=== PATIENT | male | born 1995 | race African-American/Black ===

== ENCOUNTER → 2019-05-24 | Outpatient (CLI) | payer BC ==
--- NOTE | 2019-05-24 09:20 | Diagnostic Imaging Report ---
INDICATION: Injury one week ago with persistent pain. Two-view left tib-fib show no fracture, dislocation, foreign body or acute abnormality. IMPRESSION: Negative. Dictated by: Dictated on workstation # [id number]
== END ==
LOC: RAD FS 08:50
PROVIDERS: ATTEND Nurse Practitioner Family
DX: S89.90XA Unspecified injury of unspecified lower leg, initial encounter (principal)
CPT/HCPCS: 73590

== ENCOUNTER 2019-06-19 18:31 | Emergency (ER) | payer BC, OTHER ==
[~2019-06-19] VITALS: Ht 187.9 cm; Wt 85.0 kg
[2019-06-19 19:01] LABS: WHITE BLOOD COUNT 5.2 10^3/uL (4.3-11.0)
--- NOTE | 2019-06-19 19:01 | ED General ---
General Chief Complaint: Exposure Stated Complaint: DEHYDRATION Source of Information: Patient, EMS History of Present Illness Date Seen by Provider: Jun 19, 2019 Time Seen by Provider: 19:00 Initial Comments 23-year-old male presenting by EMS with complaints of overall body cramping and left-sided headache. He has been at practice for football today and was very active. He has felt like he was drinking enough fluids but has not urinated since this morning. He also is having a left-sided headache. He does have a history of migraines. He states that he has not eaten since 1 PM. He denies any nausea or vomiting. He has had no diarrhea or change in his bowels. He denies any past medical problems other than the migraine headaches. Allergies and Home Medications Allergies Coded Allergies: No Known Drug Allergies (Unverified , 06/19/19) Patient Home Medication List Home Medication List Reviewed: Yes Review of Systems Review of Systems Constitutional: No chills; diaphoresis, dizziness (with trying to stand this evening); No fever EENTM: No hearing loss, No blurred vision, No double vision, No nose congestion Respiratory: No cough, No short of breath Cardiovascular: No chest pain, No palpitations Gastrointestinal: no symptoms reported Genitourinary: decreased output Musculoskeletal: muscle stiffness, muscle cramps, muscle twitching Skin: no symptoms reported Psychiatric/Neurological: Headache (left-sided) Hematologic/Lymphatic: No Symptoms Reported Immunological/Allergic: no symptoms reported Past Yidobns-Rshyex-Gdhfoz Hx Past Med/Social Hx: Reviewed Nursing Past Med/Soc Hx Patient Social History Recent Foreign Travel: No Contact w/Someone Who Travel: No Physical Exam Vital Signs Vital Signs - First Documented 06/19/19 18:32 Temp 36.4 Pulse 84 Resp 16 B/P (MAP) 170/90 (116) Pulse Ox 100 O2 Delivery Room Air Capillary Refill : Height, Weight, BMI Height: '" Weight: lbs. oz. kg; BMI Method: General Appearance: WD/WN, Mild Distress HEENT: PERRL/EOMI, Normal ENT Inspection, Pharynx Normal Neck: Full Range of Motion, Normal Inspection, Non Tender, Supple Respiratory: Chest Non Tender, Lungs Clear, Normal Breath Sounds, No Accessory Muscle Use, No Respiratory Distress Cardiovascular: Regular Rate, Rhythm, Normal Peripheral Pulses Gastrointestinal: Normal Bowel Sounds, No Pulsatile Mass, Non Tender, Soft Back: Normal Inspection, No CVA Tenderness, No Vertebral Tenderness Extremity: Normal Capillary Refill, Normal Inspection, Normal Range of Motion, Non Tender, No Calf Tenderness Neurologic/Psychiatric: Alert, Oriented x3, No Motor/Sensory Deficits, Normal Mood/Affect, manager foreign II-XII Norm as Tested Skin: Normal Color, Diaphoresis Progress/Results/Core Measures Suspected Sepsis SIRS Temperature: Pulse: Respiratory Rate: Laboratory Tests 06/19/19 18:40: White Blood Count 5.2 Blood Pressure / Mean: Laboratory Tests 06/19/19 18:40: Creatinine 2.18H, Platelet Count 197, Total Bilirubin 0.9 06/19/19 20:43: Creatinine 1.86H Results/Orders Lab Results Laboratory Tests Test 06/19/19 18:40 06/19/19 19:47 06/19/19 20:43 Range/Units White Blood Count 5.2 4.3-11.0 10^3/uL Red Blood Count 6.00 H 4.35-5.85 10^6/uL Hemoglobin 14.1 13.3-17.7 G/DL Hematocrit 44 40-54 % Mean Corpuscular Volume 73 L 80-99 FL Mean Corpuscular Hemoglobin 24 L 25-34 PG Mean Corpuscular Hemoglobin Concent 32 32-36 G/DL Red Cell Distribution Width 15.2 H 10.0-14.5 % Platelet Count 197 130-400 10^3/uL Mean Platelet Volume 11.0 H 7.4-10.4 FL Neutrophils (%) (Auto) 56 42-75 % Lymphocytes (%) (Auto) 32 12-44 % Monocytes (%) (Auto) 12 0-12 % Eosinophils (%) (Auto) 0 0-10 % Basophils (%) (Auto) 0 0-10 % Neutrophils # (Auto) 2.9 1.8-7.8 X 10^3 Lymphocytes # (Auto) 1.6 1.0-4.0 X 10^3 Monocytes # (Auto) 0.6 0.0-1.0 X 10^3 Eosinophils # (Auto) 0.0 0.0-0.3 10^3/uL Basophils # (Auto) 0.0 0.0-0.1 10^3/uL Sodium Level 138 137 135-145 MMOL/L Potassium Level 3.7 4.2 3.6-5.0 MMOL/L Chloride Level 94 L 100 98-107 MMOL/L Carbon Dioxide Level 24 25 21-32 MMOL/L Anion Gap 20 H 12 5-14 MMOL/L Blood Urea Nitrogen 20 H 19 H 7-18 MG/DL Creatinine 2.18 H 1.86 H 0.60-1.30 MG/DL Estimat Glomerular Filtration Rate 47 56 BUN/Creatinine Ratio 9 10 Glucose Level 93 80 70-105 MG/DL Calcium Level 11.0 H 8.9 8.5-10.1 MG/DL Corrected Calcium 8.5-10.1 MG/DL Magnesium Level 1.8 1.6-2.4 MG/DL Total Bilirubin 0.9 0.1-1.0 MG/DL Aspartate Amino Transf (AST/SGOT) 26 5-34 U/L Alanine Aminotransferase (ALT/SGPT) 14 0-55 U/L Alkaline Phosphatase 68 40-136 U/L Total Protein 8.4 H 6.4-8.2 GM/DL Albumin 5.4 H 3.2-4.5 GM/DL Urine Color DARK YELLOW Urine Clarity CLEAR Urine pH 6.0 5-9 Urine Specific [place] 1.020 1.016-1.022 Urine Protein TRACE H NEGATIVE Urine Glucose (UA) NEGATIVE NEGATIVE Urine Ketones TRACE H NEGATIVE Urine Nitrite NEGATIVE NEGATIVE Urine Bilirubin NEGATIVE NEGATIVE Urine Urobilinogen 0.2 NORMAL MG/DL Urine Leukocyte Esterase NEGATIVE NEGATIVE Urine RBC (Auto) NEGATIVE NEGATIVE Urine RBC RARE /HPF Urine WBC 10-25 H /HPF Urine Squamous Epithelial Cells 2-5 /HPF Urine Crystals NONE /LPF Urine Bacteria NEGATIVE /HPF Urine Casts PRESENT /LPF Urine Hyaline Casts >50 H /LPF Urine Mucus LARGE H /LPF Urine Culture Indicated NO My Orders Orders - ZAHIDA RESTREPO MD Cbc With Automated Diff (06/19/19 18:41) Magnesium (06/19/19 18:41) Ekg Tracing (06/19/19 18:41) Comprehensive Metabolic Panel (06/19/19 18:41) Monitor-Rhythm Ecg Trace Only (06/19/19 18:41) Ed Iv/Invasive Line Start (06/19/19 18:41) Ua Culture If Indicated (06/19/19 18:41) Ns Iv 1000 Ml (Sodium Chloride 0.9%) (06/19/19 18:41) Ketorolac Injection (Toradol Injection) (06/19/19 19:11) Orthostatic Vital Signs (Adult (06/19/19 19:11) Basic Metabolic Panel (06/19/19 20:45) Ns Iv 1000 Ml (Sodium Chloride 0.9%) (06/19/19 20:00) Vital Signs/I&O 06/19/19 06/19/19 06/19/19 18:32 19:38 21:30 Temp 36.4 36.5 Pulse 84 74 72 80 72 Resp 16 14 B/P (MAP) 170/90 (116) 142/69 (93) 145/85 146/76 (99) 126/71 (89) Pulse Ox 100 100 O2 Delivery Room Air Room Air 06/20/19 00:00 Intake Total 2200 ml Balance 2200 ml Capillary Refill : Progress Note #1: Progress Note Check labs and give IV fluids for hydration. Obtain electrocardiogram as well as well since he has been dehydrated and having muscle tremors and shakes. Progress Note #2: Progress Note His labs are showing that he has elevated creatinine. We will give additional fluids beyond the 2 bags from EMS. We will repeat his chemistry panel else's see what his creatinine has done. Provided he has responded to that could consider discharging home. If his creatinine is not improving then would have to consider admission for his acute kidney injury Progress Note #3: Progress Note Repeat labs show that his creatinine is decreased to 1.86. This has improved. As patient is feeling improved Will have him continue to push fluids orally at home. However he will need to have his creatinine rechecked in 2-3 days at the clinic. If it is not continuing to improve then he will need to hold off on any further sports or physical exertion until he can get further checked. If his creatinine is not improving then he will need to continue with the fluids and may even need to see nephrology or have admission for IV fluids. ECG Initial ECG Impression Date: Jun 19, 2019 Initial ECG Impression Time: 18:48 Initial ECG Rate: 85 Initial ECG Rhythm: Normal Sinus Initial ECG Comparisson: No Previous ECG Available Comment Sinus rhythm with a heart rate of 85 bpm. Left atrial enlargement. Left ventricu lar hypertrophy with early repolarization. MO interval of 175 ms. QT interval 364 ms with a QT corrected interval 433 ms. There is no prior tracing available for comparison. Departure Impression Primary Impression: Dehydration after exertion Additional Impression: Acute renal injury due to hypovolemia Disposition: HOME, SELF-CARE Condition: Stable Departure-Patient Inst. Decision time for Depature: 21:25 Referrals: [facility] (PCP) Primary Care Physician JUDY LLOYD APRN (Family) Primary Care Physician Patient Instructions: Dehydration, Adult (DC), Acute Kidney Failure (DC) Add. Discharge Instructions: No sports or strenuous activity until kidney function has returned to normal. You will need to get this rechecked in clinic or with a provider on or Tuesday. In the meantime continue to drink plenty of fluids and stay well hydrated. Your creatinine is now down to 1.86 after hydration but a normal value should be closer to 1.2 or less. All discharge instructions reviewed with patient and/or family. Voiced understanding. Work/School Note: School/Childcare Release Date Seen in the Emergency Dep artment: Jun 19, 2019 Time Dismissed from Emergency Department: 21:31 Return to School: Jun 20, 2019 Restrictions: No PE-Until Released, No Sports-Until Released Other Restrictions Listed Below: Needs lab in 2-3 days to recheck Creatinine before release for sports ZAHIDA RESTREPO MD Jun 19, 2019 19:01
[2019-06-19 19:02] LABS: BASOPHILS % (AUTO) 0 % (0-10); EOSINOPHILS % (AUTO) 0 % (0-10); HEMATOCRIT 44 % (40-54); HEMOGLOBIN 14.1 G/DL (13.3-17.7); LYMPHOCYTES # (AUTO) 1.6 X 10^3 (1.0-4.0); LYMPHOCYTES % (AUTO) 32 % (12-44); MEAN CORPUSCULAR HEMOGLOBIN 24 PG (25-34); MEAN CORPUSCULAR HGB CONC 32 G/DL (32-36); MEAN CORPUSCULAR VOLUME 73 FL (80-99); MONOCYTES # (AUTO) 0.6 X 10^3 (0.0-1.0); MONOCYTES % (AUTO) 12 % (0-12); NEUTROPHILS # (AUTO) 2.9 X 10^3 (1.8-7.8); NEUTROPHILS % (AUTO) 56 % (42-75); PLATELET COUNT 197 10^3/uL (130-400); RED CELL DISTRIBUTION WIDTH 15.2 % (10.0-14.5)
--- NOTE | 2019-06-19 19:11 | NUR ---
Gave the patient a glass of water at this time.
[2019-06-19 19:15] LABS: ALKALINE PHOSPHATASE 68 U/L (40-136); BILIRUBIN,TOTAL 0.9 MG/DL (0.1-1.0); BUN/CREATININE RATIO 9; CARBON DIOXIDE 24 MMOL/L (21-32); CHLORIDE 94 MMOL/L (98-107); CREATININE SERUM 2.18 MG/DL (0.60-1.30); GFR ESTIMATED 47; GLUCOSE 93 MG/DL (70-105); MAGNESIUM 1.8 MG/DL (1.6-2.4); POTASSIUM 3.7 MMOL/L (3.6-5.0); SODIUM 138 MMOL/L (135-145)
[2019-06-19 19:16] LABS: ALANINE AMINOTRANSFERASE 14 U/L (0-55); ALBUMIN 5.4 GM/DL (3.2-4.5); TOTAL PROTEIN 8.4 GM/DL (6.4-8.2)
[2019-06-19] MEDS: KETOROLAC 30 MG/ML VIAL IVP STA (19:17)
[2019-06-19 19:38] VITALS: BP_SYST 126; BP_SYST 142; BP_SYST 146; BP_DIAS 69; BP_DIAS 71; BP_DIAS 76
[2019-06-19] MEDS: NS IV 1000 ML 1,000 ML IV SCH (20:00)
[2019-06-19] MEDS: NS IV 1000 ML 1,000 ML IV STA (20:00)
[2019-06-19 20:04] LABS: CLARITY,URINE CLEAR; COLOR,URINE DARK YELLOW; GLUCOSE, URINE (UA) NEGATIVE (NEGATIVE); KETONES,URINE TRACE (NEGATIVE); NITRITE,URINE NEGATIVE (NEGATIVE); PROTEIN,URINE TRACE (NEGATIVE)
[2019-06-19 20:05] LABS: BACTERIA,URINE NEGATIVE /HPF; BILIRUBIN,URINE NEGATIVE (NEGATIVE); HYALINE CASTS, URINE >50 /LPF; LEUKOCYTE ESTERASE ,URINE NEGATIVE (NEGATIVE); RBC,URINE RARE /HPF; UROBILINOGEN,URINE 0.2 MG/DL (NORMAL)
--- NOTE | 2019-06-19 20:47 | NUR ---
when pt arrived by ems he had 2 bags of normal saline wide open infusing.
[2019-06-19 21:14] LABS: CALCIUM 8.9 MG/DL (8.5-10.1); CREATININE SERUM 1.86 MG/DL (0.60-1.30); POTASSIUM 4.2 MMOL/L (3.6-5.0)
[2019-06-19 21:30] VITALS: BP 145/85
== END 2019-06-19 21:32 | disposition home or self-care (01) ==
LOC: EDUNIT# 18:31 → ER FS 18:32
DX: E86.0 Dehydration (principal); E86.1 Hypovolemia; N17.9 Acute kidney failure, unspecified; G43.909 Migraine, unspecified, not intractable, without status migrainosus
CPT/HCPCS: 36415; 80048; 80053; 81000; 83735; 85025; 93005; 93041; 96361; 96374

== ENCOUNTER → 2019-06-21 | Outpatient (CLI) | payer BC, OTHER ==
[2019-06-21 09:41] LABS: BUN/CREATININE RATIO 11; CARBON DIOXIDE 29 MMOL/L (21-32); CHLORIDE 99 MMOL/L (98-107); CREATININE SERUM 1.35 MG/DL (0.60-1.30); GFR ESTIMATED > 60; POTASSIUM 4.2 MMOL/L (3.6-5.0); SODIUM 139 MMOL/L (135-145)
[2019-06-21 09:42] LABS: ALANINE AMINOTRANSFERASE 11 U/L (0-55); ALBUMIN 4.5 GM/DL (3.2-4.5); ALKALINE PHOSPHATASE 57 U/L (40-136); BILIRUBIN,TOTAL 0.4 MG/DL (0.1-1.0); CALCIUM 9.3 MG/DL (8.5-10.1); GLUCOSE 84 MG/DL (70-105)
== END ==
LOC: LAB FS 09:02
PROVIDERS: ATTEND Nurse Practitioner
DX: N17.9 Acute kidney failure, unspecified (principal)
CPT/HCPCS: 36415; 80053